=== PATIENT | female | born 1990 | race Caucasian/White ===

== ENCOUNTER 2017-05-29 18:50 | Emergency (ER) | payer SELFPAY ==
[2017-05-29] MEDS ORDERED: IBUPROFEN 800 MG TABLET PO ONE (19:50)
[2017-05-29] MEDS ORDERED: LORATADINE 10 MG TABLET PO ONE (19:50)
[2017-05-29] MEDS ORDERED: PSEUDOEPHEDRINE HCL 30 MG TABLET PO ONE (19:50)
[2017-05-29] MEDS ORDERED: GUAIFENESIN 600 MG TABLET.SA PO ONE (19:50)
--- NOTE | 2017-05-29 19:53 | ER Document Report ---
ED ENT - General Chief Complaint: Congestion Stated Complaint: COUGH Time Seen by Provider: 05/29/17 19:26 Mode of Arrival: Ambulatory Information source: Patient Notes: 27-year-old female presents to ED for cough cold congestion runny nose since yesterday. TRAVEL OUTSIDE OF THE [place] IN LAST 30 DAYS: No - HPI Patient complains to provider of: Nose problem, Throat problem Onset: Yesterday Onset/Duration: Gradual, Worse Quality of pain: Achy Severity: Moderate Pain Level: 4 Location of pain: Other - Body aches Associated symptoms: Chills, Congestion, Cough, Runny nose, Sinus pain. denies : Fever Similar symptoms previously: Yes Recently seen / treated by doctor: No - Related Data Allergies/Adverse Reactions: No Known Allergies Allergy (Verified 05/29/17 18:50) Past Medical History - General Information source: Patient - Social History Smoking Status: Current Every Day Smoker Cigarette use (# per day): Yes - 14-15 cigarettes a day Chew tobacco use (# tins/day): No Smoking Education Provided: Yes - 3 minutes Frequency of alcohol use: None Drug Abuse: None Occupation: None Lives with: Family - Sister Family History: Arthritis, CAD, CVA, DM, Hyperlipidemia, Hypertension. denies: COPD, Malignancy, Thyroid Disfunction Patient has suicidal ideation: No Patient has homicidal ideation: No - Past Medical History Cardiac Medical History: Reports: None Pulmonary Medical History: Reports: Hx Bronchitis EENT Medical History: Reports: None Neurological Medical History: Reports: None Endocrine Medical History: Reports: None Renal/ Medical History: Reports: None Malignancy Medical History: Reports: None GI Medical History: Reports: None Musculoskeltal Medical History: Reports Hx Musculoskeletal Trauma Skin Medical History: Reports Hx Psoriasis Psychiatric Medical History: Reports: Hx Depression Traumatic Medical History: Reports: Hx Fractures - Both arms and ankle Infectious Medical History: Reports: None Past Surgical History: Reports: Hx Cholecystectomy - Immunizations Hx Diphtheria, Pertussis, Tetanus Vaccination: Yes Review of Systems - Review of Systems Constitutional: No symptoms reported EENT: Nose discharge, Sinus discharge Cardiovascular: No symptoms reported Respiratory: Cough Gastrointestinal: No symptoms reported Genitourinary: No symptoms reported Female Genitourinary: No symptoms reported Musculoskeletal: Muscle pain - Body aches Skin: No symptoms reported Hematologic/Lymphatic: No symptoms reported Neurological/Psychological: No symptoms reported -: Yes All other systems reviewed and negative Physical Exam - Vital signs Vitals: Temp Pulse Resp BP Pulse Ox 98.7 F 90 20 126/71 H 96 05/29/17 18:54 05/29/17 18:54 05/29/17 18:54 05/29/17 18:54 05/29/17 18:54 Interpretation: Normal - General General appearance: Appears well, Alert - HEENT Head: Normocephalic, Atraumatic Eyes: Normal Pupils: PERRL Ears: Normal External canal: Normal Tympanic membrane: Normal Sinus: Normal Nasal: Purulent discharge, Swelling Mouth/Lips: Normal Mucous membranes: Normal Pharynx: Post nasal drainage Neck: Normal - Respiratory Respiratory status: No respiratory distress Chest status: Nontender Breath sounds: Nonproductive cough. No: Productive cough, Rales, Rhonchi, Stridor, Wheezing Chest palpation: Normal - Cardiovascular Rhythm: Regular Heart sounds: Normal auscultation Murmur: No - Abdominal Inspection: Normal Distension: No distension Bowel sounds: Normal Tenderness: Nontender Organomegaly: No organomegaly - Back Back: Normal, Nontender - Extremities General upper extremity: Normal inspection, Nontender, Normal color, Normal ROM , Normal temperature General lower extremity: Normal inspection, Nontender, Normal color, Normal ROM , Normal temperature, Normal weight bearing. No: Onelia's sign - Neurological Neuro grossly intact: Yes Cognition: Normal Orientation: AAOx4 [place] Coma Scale Eye Opening: Spontaneous [place] Coma Scale Verbal: Oriented [place] Coma Scale Motor: Obeys Commands April Coma Scale Total: 15 Speech: Normal Motor strength normal: LUE, RUE, LLE, RLE Sensory: Normal - Psychological Associated symptoms: Normal affect, Normal mood - Skin Skin Temperature: Warm Skin Moisture: Dry Skin Color: Normal Course - Re-evaluation Re-evalutation: 05/29/17 19:57 Assessment consistent with an upper respiratory infection. Patient was treated with Claritin and Sudafed Mucinex and ibuprofen. Patient was instructed to take [id number] medicines for her cough and cold symptoms. Patient to follow-up with primary doctor. Patient was instructed to follow-up with for her slightly elevated blood pressure. Patient was also given instructions concerning stopping smoking that it also increases her cough and cold symptoms. - Vital Signs Vital signs: Temp Pulse Resp BP Pulse Ox 97.5 F 94 20 130/76 H 95 05/29/17 19:57 05/29/17 19:57 05/29/17 18:54 05/29/17 19:57 05/29/17 19:57 Discharge - Discharge Clinical Impression: URI (upper respiratory infection) Qualifiers: URI type: unspecified URI Qualified Code(s): J06.9 - Acute upper respiratory infection, unspecified HTN (hypertension) Qualifiers: Hypertension type: unspecified Qualified Code(s): I10 - Essential (primary) hypertension Condition: Stable Disposition: HOME, SELF-CARE Instructions: Family Physicians / Practices Additional Instructions: UPPER RESPIRATORY ILLNESS: You have a viral infection of the respiratory passages -- a "cold." This common infection causes nasal congestion, drainage, and often sore throat and cough. It is highly contagious. The disease usually lasts about 10 to 14 days. There is no "cure" for the viral infection -- it must run its course. If there is a complication, such as bacterial infection in the nose, sinuses, middle ear, or bronchial tubes, antibiotics may be required. The antibiotics won't affect the virus. Drink plenty of fluids. A humidifier may help. An expectorant medication or decongestant may make you more comfortable. Use acetaminophen or ibuprofen for fever or aches. See the doctor if fever persists over two days, if there is any significant worsening of your symptoms, or if you simply fail to improve as expected. DECONGESTANT MEDICATION: A decongestant medicine has been prescribed. Often this medicine is combined in the same tablet with an antihistamine or expectorant. This type of medicine is helpful in treating a bad cold or sinus condition, as well as in treatment of the nasal congestion of hay fever. It is not of much benefit for lung infections. Decongestant medicines are related to stimulants. They can cause an increase in blood pressure and heart rate. Persons with heart disease and high blood pressure should not take decongestants without discussing this with the physician. If you develop palpitations, chest pain, headache, or tremors, stop the medicine and consult your physician. COUGH-SUPPRESSANT & EXPECTORANT MEDICATION: You are to use a cough medication as needed for relief of symptoms. This medicine is a combination of an expectorant (to make the mucous thinner and more easily "coughed up") and a cough suppressant (to reduce the frequency of coughing). The cough-suppressant medicine is related to narcotics. You may experience mild nausea and sleepiness. Some patients who are very sensitive to narcotics may have stomach pain from this medicine. Taking the medicine with food reduces these side effects. Do not drive or work with machinery until you know how this medicine affects you. The expectorant should have no side effects. Iodine-containing expectorants (such as organidin) should not be taken by persons with active thyroid disease unless approved by your doctor. Call the doctor if you develop shortness of breath, hives, rash, itching, lightheadedness, or severe nausea and vomiting. USE OF ACETAMINOPHEN (Tylenol): Acetaminophen may be taken for pain relief or fever control. It's much safer than aspirin, offering a wider range of "safe" dosages. It is safe during . Some brand names are Tylenol, Panadol, Datril, Anacin 3, Tempra, and Liquiprin. Acetaminophen can be repeated every four hours. The following are maximum recommended dosages: >89 pounds or adults 650 mg to 900 mg Acetaminophen can be repeated every four hours. Maximum dose not to exceed 4000 mg a day. SMOKING: If you smoke, you should stop smoking. The tar and chemicals in cigarette smoke are harmful. Smoking has been shown to cause: emphysema chronic bronchitis lung cancer mouth and throat cancer stomach and pancreas cancer premature aging defects In addition, smoking increases ear and lung infections in children of smokers. FOLLOW-UP CARE: If you have been referred to a physician for follow-up care, call the physician s office for an appointment as you were instructed or within the next two days. If you experience worsening or a significant change in your symptoms, notify the physician immediately or return to the Emergency Department at any time for re-evaluation. Forms: Elevated Blood Pressure, Smoking Cessation Education
[2017-05-29 19:57] VITALS: BP 130/76
== END 2017-05-29 20:08 | disposition home or self-care (01) ==
LOC: ER 18:50
DX: J06.9 Acute upper respiratory infection, unspecified (principal); I10 Essential (primary) hypertension; R05 Cough; R09.89 Other specified symptoms and signs involving the circulatory and respiratory systems; R68.83 Chills (without fever); J34.89 Other specified disorders of nose and nasal sinuses; M79.1 Myalgia; F17.210 Nicotine dependence, cigarettes, uncomplicated; Z71.6 Tobacco abuse counseling
CPT/HCPCS: 99283

== ENCOUNTER 2017-11-25 08:27 | Emergency (ER) | payer SELFPAY ==
[2017-11-25 08:42] VITALS: BP 124/81
--- NOTE | 2017-11-25 09:39 | RADIOLOGY REPORT (SQ) ---
EXAM DESCRIPTION: FOREARM RIGHT COMPLETED DATE/TIME: 11/25/2017 9:26 am REASON FOR STUDY: pain to forearm, hit on car door COMPARISON: None. NUMBER OF VIEWS: Two views. TECHNIQUE: Two radiographic images acquired of the right forearm, including elbow and wrist in at le ast one projection. LIMITATIONS: None. FINDINGS: MINERALIZATION: Normal. BONES: No acute fracture. No worrisome bone lesions. SOFT TISSUES: No metallic foreign bodies. OTHER: No other significant finding. IMPRESSION: No fracture identified of the right radius or ulna. TECHNICAL DOCUMENTATION: JOB ID: [id number] [employer]- All Rights Reserved Reading location - IP/workstation name: [email or web address]
--- NOTE | 2017-11-25 09:48 | ER Document Report ---
HPI - HPI Pain Level: 4 Context: Patient is a 27-year-old healthy female who complains of pain to her right ulnar forearm 1 day. Patient reports that she hit it on her truck door and it hurts when she moves her wrist laterally. No previous injury. No deformity. Associated Symptoms: None Exacerbated by: Movement Relieved by: Denies Similar symptoms previously: No Recently seen / treated by doctor: No - ROS Systems Reviewed and Negative: Yes All other systems reviewed and negative - MUSCULOSKELETAL Musculoskeletal: REPORTS: Extremity pain Past Medical History - General Information source: Patient - Social History Smoking Status: Current Every Day Smoker Chew tobacco use (# tins/day): No Frequency of alcohol use: Social Drug Abuse: None Lives with: Family Family History: Arthritis, CAD, CVA, DM, Hyperlipidemia, Hypertension. denies: COPD, Malignancy, Thyroid Disfunction Patient has suicidal ideation: No Patient has homicidal ideation: No Pulmonary Medical History: Reports: Hx Bronchitis Renal/ Medical History: Denies: Hx Peritoneal Dialysis Musculoskeltal Medical History: Reports Hx Musculoskeletal Trauma Skin Medical History: Reports Hx Psoriasis Psychiatric Medical History: Reports: Hx Depression Traumatic Medical History: Reports: Hx Fractures - Both arms and ankle Past Surgical History: Reports: Hx Cholecystectomy - Immunizations Hx Diphtheria, Pertussis, Tetanus Vaccination: Yes Vertical Provider Document - CONSTITUTIONAL Agree With Documented VS: Yes Exam Limitations: No Limitations - INFECTION CONTROL TRAVEL OUTSIDE OF THE [place] IN LAST 30 DAYS: No - HEENT HEENT: Atraumatic, PERRLA - NECK Neck: Normal Inspection, Supple - RESPIRATORY Respiratory: Breath Sounds Normal, No Respiratory Distress - CARDIOVASCULAR Cardiovascular: Regular Rate, Regular Rhythm - MUSCULOSKELETAL/EXTREMETIES Musculoskeletal/Extremeties: Tender - Focal lateral mid ulnar tenderness with small hematoma noted. Wrist with full range of motion no tenderness over radial or ulnar styloid. Elbow with full range of motion, nontender Course - Re-evaluation Re-evalutation: 11/25/17 09:45 X-rays negative for fracture. These results were discussed with patient. Brett wrap applied to forearm. Home care, primary care follow-up and ED return precautions discussed with patient. Patient agreeable with plan and stable for discharge - Vital Signs Vital signs: Temp Pulse Resp BP Pulse Ox 97.8 F 70 20 124/81 97 11/25/17 08:39 11/25/17 08:39 11/25/17 08:39 11/25/17 08:39 11/25/17 08:39 Procedures - Immobilization Right forearm Pre-Proc Neuro Vasc Exam: Normal Immobilizer type: Brett wrap Performed by: PCT Post-Proc Neuro Vasc Exam: Normal Alignment checked and good: Yes Discharge - Discharge Clinical Impression: Contusion of right forearm Qualifiers: Encounter type: initial encounter Qualified Code(s): S50.11XA - Contusion of right forearm, initial encounter Condition: Stable Disposition: HOME, SELF-CARE Instructions: Brett Wrap ([facility]), Contusion ([facility]), Ibuprofen (General) ([facility]), Ice & Elevation ([facility]) Additional Instructions: Brett, ice, elevate injury as much as possible Ibuprofen for discomfort Follow-up with your primary care if pain persists more than 10 days Prescriptions: Ibuprofen [Motrin 800 Mg Tablet] 800 mg PO Q6H #20 tablet
== END 2017-11-25 09:57 | disposition home or self-care (01) ==
LOC: ER 08:27
DX: S50.11XA Contusion of right forearm, initial encounter (principal); M79.631 Pain in right forearm; W22.8XXA Striking against or struck by other objects, initial encounter; Y93.89 Activity, other specified; F17.200 Nicotine dependence, unspecified, uncomplicated; Z87.81 Personal history of (healed) traumatic fracture
CPT/HCPCS: 99283

== ENCOUNTER 2018-03-25 18:09 | Emergency (ER) | payer SELFPAY ==
[2018-03-25] MEDS ORDERED: HYDROCODONE/ACETAMINOPHEN 5-325 MG TABLET PO ONE (18:59)
[2018-03-25] MEDS ORDERED: GUAIFENESIN/CODEINE PHOS 100-10 MG/ 5 ML UDC PO ONE (18:59)
[2018-03-25] MEDS ORDERED: IPRATROPIUM/ALBUTEROL 0.5-2.5 MG/3 ML AMPUL NEB ONE (18:59)
--- NOTE | 2018-03-25 19:06 | ER Document Report ---
ED General - General Chief Complaint: Diarrhea Stated Complaint: DIFFICULTY BREATHING Time Seen by Provider: 03/25/18 18:59 Mode of Arrival: Ambulatory Information source: Patient Notes: History of Present Illness Chief Complaint: [cough] Cough quality= [dry], [without] sputum [No] hemoptysis [ ] History obtained from [patient] 27 years old female presents today with sore throat cough and difficulty in breathing for last 3 days. Denied any fever chills or other constitutional symptoms. Cough is persistent and episodic. She was seen at [facility] yesterday, prescribed amoxicillin. Symptoms began: [past few days] Onset: [gradual] Timing: [constant, lasts hours, persists] Intensity: [moderate] Location: [respiratory tract] Radiation: [none] Migration: [none] Aggravating factors: [none] Relieving factors: [none] Review of Systems : All other systems negative as reviewed. CONSTITUTIONAL No Fever. EYES No eye pain. ENT No sore throat CARDIOVASCULAR No chest pain. RESPIRATORY No SOB, No wheezing, No orthopnea, No pedal edema. GI No abdominal pain, no vomiting, no diarrhea. GENITOURINARY No dysuria. SKIN No rash. NEUROLOGIC No headache. MUSCULOSKELETAL No back pain, No calf pain, No calf swelling Physical Exam CONSTITUTIONAL Vital signs reviewed, Patient has normal respiratory rate, Well appearing, Patient appears comfortable, normal stature. HEAD Atraumatic, Normocephalic. EYES Eyes are normal to inspection. ENT Ears normal to inspection, Nose examination normal. NECK No jugular venous distention. RESPIRATORY CHEST Breath sounds bilaterally decreased breath sounds with scattered wheezing, No respiratory distress. CARDIOVASCULAR RRR, No murmurs, Normal S1 S2, No rub, No gallop. ABDOMEN Abdomen is nontender, No masses, Bowel sounds normal, No distension, No peritoneal signs. BACK Normal inspection. UPPER EXTREMITY Inspection normal. LOWER EXTREMITY Inspection normal. NEURO No facial droop, normal speech. SKIN Skin is warm, Skin is dry, Skin is normal color. PSYCHIATRIC Normal affect. TRAVEL OUTSIDE OF THE [place] IN LAST 30 DAYS: No - HPI Notes: Dictated - Related Data Allergies/Adverse Reactions: No Known Allergies Allergy (Verified 03/25/18 18:12) Past Medical History - Social History Smoking Status: Former Smoker Chew tobacco use (# tins/day): No Smoking Education Provided: No Frequency of alcohol use: None Lives with: Family Family History: Arthritis, CAD, CVA, DM, Hyperlipidemia, Hypertension. denies: COPD, Malignancy, Thyroid Disfunction Patient has suicidal ideation: No Patient has homicidal ideation: No Pulmonary Medical History: Reports: Hx Bronchitis Renal/ Medical History: Denies: Hx Peritoneal Dialysis Musculoskeletal Medical History: Reports Hx Musculoskeletal Trauma Skin Medical History: Reports Hx Psoriasis Psychiatric Medical History: Reports: Hx Depression Traumatic Medical History: Reports: Hx Fractures - Both arms and ankle Past Surgical History: Reports: Hx Cholecystectomy - Immunizations Hx Diphtheria, Pertussis, Tetanus Vaccination: Yes Review of Systems - Review of Systems Notes: Dictated Physical Exam - Vital signs Vitals: Temp Pulse Resp BP Pulse Ox 98.5 F 72 18 130/84 H 99 03/25/18 18:25 03/25/18 18:25 03/25/18 18:25 03/25/18 18:25 03/25/18 18:25 - Notes Notes: Dictated Course - Re-evaluation Re-evalutation: 03/25/18 20:06 Given nebulizer treatment and cough medicine - Vital Signs Vital signs: Temp Pulse Resp BP Pulse Ox 98.5 F 72 18 130/84 H 99 03/25/18 18:25 03/25/18 18:25 03/25/18 18:25 03/25/18 18:25 03/25/18 18:25 Discharge - Discharge Clinical Impression: Asthmatic bronchitis with acute exacerbation Qualifiers: Asthma severity: moderate Asthma persistence: persistent Qualified Code(s): J45.41 - Moderate persistent asthma with (acute) exacerbation Condition: Fair Disposition: HOME, SELF-CARE Instructions: Bronchitis With Bronchospasm (Wheezing) ([facility]) Prescriptions: Hydrocodone Bit/Homatropine [Hycodan 5-1.5 mg Tablet] 1 tab PO Q4HP PRN #14 tablet PRN Reason: Albuterol Sulfate [Proair HFA] 1 - 2 puff IH Q4 PRN #1 inhaler PRN Reason: Prednisone [Sterapred Ds] 10 mg PO ASDIR PRN 6 Days #1 tab.ds.pk PRN Reason:
[2018-03-25 20:19] VITALS: BP 129/77
== END 2018-03-25 20:16 | disposition home or self-care (01) ==
LOC: ER 18:09
DX: J45.41 Moderate persistent asthma with (acute) exacerbation (principal); R19.7 Diarrhea, unspecified; Z87.891 Personal history of nicotine dependence; Z90.49 Acquired absence of other specified parts of digestive tract
CPT/HCPCS: 94640; 99284; J7620

== ENCOUNTER 2018-05-17 10:57 | Emergency (ER) | payer SELFPAY ==
[2018-05-17] MEDS ORDERED: IPRATROPIUM/ALBUTEROL 0.5-2.5 MG/3 ML AMPUL NEB ONE (11:50)
[2018-05-17] MEDS ORDERED: PREDNISONE 20 MG TABLET PO ONE (11:50)
--- NOTE | 2018-05-17 13:57 | RADIOLOGY REPORT (SQ) ---
EXAM DESCRIPTION: CHEST 2 VIEWS COMPLETED DATE/TIME: 05/17/2018 1:31 pm REASON FOR STUDY: cough, fever, sob COMPARISON: None. EXAM PARAMETERS: NUMBER OF VIEWS: two views TECHNIQUE: Digital Frontal and Lateral radiographic views of the chest acquired. RADIATION DOSE: NA LIMITATIONS: none FINDINGS: LUNGS AND PLEURA: Mild streaky interstitial pulmonary opacity, suggestive of atypical or v iral infection. No pleural effusion. MEDIASTINUM AND HILAR STRUCTURES: No masses or contour abnormalities. HEART AND VASCULAR STRUCTURES: Heart normal size. No evidence for failure. BONES: No acute findings. HARDWARE: None in the chest. OTHER: No other significant finding. IMPRESSION: Mild streaky interstitial pulmonary opacity, suggestive of atypical or viral infection. There is no focal airspace opacity. TECHNICAL DOCUMENTATION: JOB ID: [id number] [employer]- All Rights Reserved Reading location - IP/workstation name: [email or web address]
[2018-05-17] MEDS ORDERED: ALBUTEROL SULFATE HFA (90 MCG/PUFF) 8 GM MDI (1 MDI/ER DISP) IH ONE (14:24)
[2018-05-17] MEDS ORDERED: IBUPROFEN 600 MG TABLET PO ONE (14:29)
[2018-05-17] MEDS ORDERED: ACETAMINOPHEN 325 MG TABLET PO ONE (14:29)
--- NOTE | 2018-05-17 14:30 | ER Document Report ---
HPI - HPI Time Seen by Provider: 05/17/18 11:37 Pain Level: 4 Notes: Patient is an otherwise healthy 28-year-old female who presents with chief complaint of productive cough with fever over the last 3-4 days. Patient reports history of pneumonia in the past, states she feels this is the same. Denies any nausea, vomiting or diarrhea. Has been taking [id number] cough and cold medicine with no relief. - CONSTITUTIONAL Constitutional: DENIES: Fever, Chills - NEURO Neurology: REPORTS: Headache - CARDIOVASCULAR Cardiovascular: REPORTS: Chest pain - Pt States from cough - RESPIRATORY Respiratory: REPORTS: Coughing Past Medical History - General Information source: Patient - Social History Smoking Status: Current Every Day Smoker Chew tobacco use (# tins/day): No Frequency of alcohol use: None Drug Abuse: None Family History: Arthritis, CAD, CVA, DM, Hyperlipidemia, Hypertension. denies: COPD, Malignancy, Thyroid Disfunction Patient has suicidal ideation: No Patient has homicidal ideation: No Pulmonary Medical History: Reports: Hx Bronchitis Renal/ Medical History: Denies: Hx Peritoneal Dialysis Musculoskeletal Medical History: Reports Hx Musculoskeletal Trauma Skin Medical History: Reports Hx Psoriasis Psychiatric Medical History: Reports: Hx Depression Traumatic Medical History: Reports: Hx Fractures - Both arms and ankle Past Surgical History: Reports: Hx Cholecystectomy - Immunizations Hx Diphtheria, Pertussis, Tetanus Vaccination: Yes Vertical Provider Document - CONSTITUTIONAL Notes: PHYSICAL EXAMINATION: GENERAL: Well-appearing, well-nourished and in no acute distress. HEAD: Atraumatic, normocephalic. EYES: Pupils equal round extraocular movements intact, conjunctiva are normal. ENT: Nares with rhinorrhea, no tonsillar swelling noted, bilateral TMs pink. NECK: Normal range of motion LUNGS: No respiratory distress, moderate expiratory wheezes noted bilaterally. Musculoskeletal: Normal range of motion NEUROLOGICAL: Normal speech, normal gait. PSYCH: Normal mood, normal affect. SKIN: Warm, Dry, normal turgor, no rashes or lesions noted. - INFECTION CONTROL TRAVEL OUTSIDE OF THE [place] IN LAST 30 DAYS: No Course - Re-evaluation Re-evalutation: Patient's lung sounds have improved after several breathing treatments. X-ray shows a mild streaky interstitial pulmonary opacity suggestive of either an atypical or viral infection. Given patient's presentation and history with productive cough in the presence of fever and multiple pneumonias in the past. I will start patient on outpatient antibiotics at this time. Patient will have close follow-up with her primary care. - Vital Signs Vital signs: Temp Pulse Resp BP Pulse Ox 98.9 F 108 H 20 137/90 H 93 05/17/18 11:00 05/17/18 11:00 05/17/18 11:00 05/17/18 11:00 05/17/18 11:00 Discharge - Discharge Clinical Impression: Upper respiratory infection Qualifiers: URI type: unspecified URI Qualified Code(s): J06.9 - Acute upper respiratory infection, unspecified Pneumonia Qualifiers: Pneumonia type: due to unspecified organism Laterality: unspecified laterality Lung location: unspecified part of lung Qualified Code(s): J18.9 - Pneumonia, unspecified organism Condition: Stable Disposition: HOME, SELF-CARE Additional Instructions: Pneumonia Your examination indicates that you have pneumonia. This is an infection of the lung tissue, usually caused by bacteria or a virus. Symptoms include cough, fever, shaking chills, chest pain, shortness of breath, and coughing up bloody sputum. Treatment for bacterial pneumonia includes rest, antibiotics for 10 to 14 days, increasing your clear liquid intake, a cool mist humidifier at your bedside, and fever medication. Often, a repeat chest X-ray is performed in a few weeks--even if you feel better--to ascertain whether the infection has completely resolved and no underlying lung problem is present. You should call the physician if you develop persistent vomiting, high fever that does not respond to fever medication, increasing shortness of breath , confusion, or lethargy. Also, failure to improve within two to three days is an indication for re-examination. Please take all medications as prescribed. Take ibuprofen or acetaminophen for pain or fever. Follow-up with your primary care provider in 2-3 days for a follow-up. Prescriptions: Doxycycline Hyclate 100 mg PO BID #14 capsule Prednisone [Deltasone 20 mg Tablet] 3 tab PO DAILY 4 Days #12 tablet Forms: Return to Work
[2018-05-17 15:00] VITALS: BP 136/72
== END 2018-05-17 15:02 | disposition home or self-care (01) ==
LOC: ER 10:57
DX: J06.9 Acute upper respiratory infection, unspecified (principal); J18.9 Pneumonia, unspecified organism; R51 Headache; R50.9 Fever, unspecified; F17.200 Nicotine dependence, unspecified, uncomplicated; Z90.49 Acquired absence of other specified parts of digestive tract
CPT/HCPCS: 94640; 99285; 71046; J7512; J3490; J7620

== ENCOUNTER 2018-06-17 09:02 | Emergency (ER) | payer SELFPAY ==
[2018-06-17] MEDS ORDERED: IPRATROPIUM/ALBUTEROL 0.5-2.5 MG/3 ML AMPUL NEB ONE (09:25)
[2018-06-17] MEDS ORDERED: PREDNISONE 20 MG TABLET PO ONE (09:25)
[2018-06-17] MEDS ORDERED: ACETAMINOPHEN 325 MG TABLET PO ONE (09:25)
[2018-06-17] MEDS ORDERED: PSEUDOEPHEDRINE HCL 30 MG TABLET PO ONE (09:25)
[2018-06-17 09:26] VITALS: BP 128/55
--- NOTE | 2018-06-17 09:27 | ER Document Report ---
HPI - HPI Patient complains to provider of: Cough, congestion Time Seen by Provider: 06/17/18 09:17 Onset: Yesterday Onset/Duration: Gradual Quality of pain: Achy Pain Level: 5 Context: Patient presents complaining of cough and congestion. Patient denies any fever. Patient does complain of headache Associated Symptoms: Nonproductive cough, Headache, Rhinnorhea. denies: Fever, Shortness of breath Exacerbated by: Denies Relieved by: Denies Similar symptoms previously: No Recently seen / treated by doctor: No - ROS ROS below otherwise negative: Yes Systems Reviewed and Negative: Yes All other systems reviewed and negative - CONSTITUTIONAL Constitutional: DENIES: Fever - EENT EENT: REPORTS: Nasal Drainage-Clear, Congestion - NEURO Neurology: REPORTS: Headache - RESPIRATORY Respiratory: REPORTS: Coughing. DENIES: Trouble Breathing - GASTROINTESTINAL Gastrointestinal: DENIES: Nausea, Patient vomiting - REPRODUCTIVE Reproductive: DENIES: : - MUSCULOSKELETAL Musculoskeletal: DENIES: Back Pain, Neck Pain - DERM Skin Color: Normal Skin Problems: None Past Medical History - General Information source: Patient - Social History Smoking Status: Former Smoker Frequency of alcohol use: None Drug Abuse: None Occupation: [employer] Family History: Arthritis, CAD, CVA, DM, Hyperlipidemia, Hypertension. denies: COPD, Malignancy, Thyroid Disfunction Pulmonary Medical History: Reports: Hx Bronchitis Renal/ Medical History: Denies: Hx Peritoneal Dialysis Musculoskeletal Medical History: Reports Hx Musculoskeletal Trauma Skin Medical History: Reports Hx Psoriasis Psychiatric Medical History: Reports: Hx Depression Traumatic Medical History: Reports: Hx Fractures - Both arms and ankle Past Surgical History: Reports: Hx Cholecystectomy - Immunizations Hx Diphtheria, Pertussis, Tetanus Vaccination: Yes Vertical Provider Document - CONSTITUTIONAL Agree With Documented VS: Yes Exam Limitations: No Limitations General Appearance: WD/WN, No Apparent Distress - INFECTION CONTROL TRAVEL OUTSIDE OF THE [place] IN LAST 30 DAYS: No - HEENT HEENT: Atraumatic, Normocephalic. negative: Pharyngeal Exudate, Pharyngeal Tenderness, Pharyngeal Erythema, Tympanic Membrane Red, Tympanic Membrane Bulging Notes: Clear rhinorrhea - NECK Neck: Normal Inspection, Supple. negative: Lymphadenopathy-Left, Lymphadenopathy-Right - RESPIRATORY Respiratory: No Respiratory Distress, Wheezing - Scattered wheezing bilaterally. negative: Chest Non-Tender - Anterior chest tenderness with cough - CARDIOVASCULAR Cardiovascular: Regular Rate, Regular Rhythm, No Murmur. negative: Tachycardia - BACK Back: Normal Inspection - MUSCULOSKELETAL/EXTREMETIES Musculoskeletal/Extremeties: MASAFIA, FROM - NEURO Level of Consciousness: Awake, Alert, Appropriate Motor/Sensory: No Motor Deficit - DERM Integumentary: Warm, Dry, No Rash Course - Re-evaluation Re-evalutation: 06/17/18 X-ray reviewed, no concern for pneumonia. Patient with increased air movement bilaterally and decreased wheezing after nebulizer treatments. - Vital Signs Vital signs: Temp Pulse Resp BP Pulse Ox 98.1 F 79 22 H 128/55 H 98 06/17/18 09:20 06/17/18 09:20 06/17/18 09:20 06/17/18 09:20 06/17/18 09:20 - Diagnostic Test Radiology reviewed: Reports reviewed Discharge - Discharge Clinical Impression: Wheezing Upper respiratory infection Qualifiers: URI type: unspecified URI Qualified Code(s): J06.9 - Acute upper respiratory infection, unspecified Condition: Stable Disposition: HOME, SELF-CARE Additional Instructions: Return immediately for any new or worsening symptoms Followup with your primary care provider, call tomorrow to make a followup appointment UPPER RESPIRATORY ILLNESS: You have a viral infection of the respiratory passages -- a "cold." This common infection causes nasal congestion, drainage, and often sore throat and cough. It is highly contagious. The disease usually lasts about 10 to 14 days. There is no "cure" for the viral infection -- it must run its course. If there is a complication, such as bacterial infection in the nose, sinuses, middle ear, or bronchial tubes, antibiotics may be required. The antibiotics won't affect the virus. Drink plenty of fluids. A humidifier may help. An expectorant medication or decongestant may make you more comfortable. Use acetaminophen or ibuprofen for fever or aches. See the doctor if fever persists over two days, if there is any significant worsening of your symptoms, or if you simply fail to improve as expected. BRONCHOSPASM: You have tightness in the bronchial tubes, called bronchospasm. This often occurs with bronchial infections. Allergies, inhaled chemicals, and polluted or cold air can also provoke bronchospasm. It's more likely in patients with asthma in the family. Emergency treatment of bronchospasm may include adrenaline shots or bronchodilator aerosol. You may feel lightheaded and have a rapid pulse for an hour or two. Rest and get plenty of fluids. At home, we'll treat you with a bronchodilator inhaler. Antibiotics and corticosteroids may be required for some patients. Until you recover, avoid chemical fumes, dusts, pollens, and exercising in very cold or dry air. If you smoke, stop now!! If you develop a fever, increased wheezing, chest pain, or severe shortness of breath, you should contact the doctor immediately. INHALED BRONCHODILATORS: You have received a treatment of and/or prescription for an inhaled bronchodilator -- a medication which stimulates the airways in the lung to dilate. This improves the flow of air in asthma, bronchitis, and emphysema. These medicines have some similarity to adrenaline, and can cause similar side effects: shakiness, racing heart, and a sense of nervousness. These side effects decrease with time. Contact your doctor if these side effects are severe. Do not over-use the medicine. Too-frequent use of the inhaler may make it ineffective. Call your doctor if the inhaler is not controlling your symptoms at the prescribed doses. STEROID MEDICATION: You have been given an injection of or oral medicine of the cortisone/steroid class. This medication is used to control inflammation or allergy. Michael t is usually only given for a short period of time, until the acute process subsides. There are usually no side effects from short-term use of cortisone-like medications. Some persons feel an increased sense of well-being and are not sleepy at bedtime. Long-term use of cortisone medications is best avoided, unless required for a severe condition. If your condition does not remit, or relapses after the course of corticosteroid medication, you should consult your physician. USE OF ACETAMINOPHEN (Tylenol): Acetaminophen may be taken for pain relief or fever control. It's much safer than aspirin, offering a wider range of "safe" dosages. It is safe during . Some brand names are Tylenol, Panadol, Datril, Anacin 3, Tempra, and Liquiprin. Acetaminophen can be repeated every four hours. The following are maximum recommended dosages: >89 pounds or adults 650 mg to 900 mg Acetaminophen can be repeated every four hours. Maximum dose not to exceed 4000 mg a day. FOLLOW-UP CARE: If you have been referred to a physician for follow-up care, call the physicians office for an appointment as you were instructed or within the next two days. If you experience worsening or a significant change in your symptoms, notify the physician immediately or return to the Emergency Department at any time for re-evaluation. Prescriptions: Albuterol Sulfate [Proair Hfa Inhalation Aerosol 8.5 gm Mdi] 2 puff IH Q4 PRN #1 mdi PRN Reason: Guaifenesin/Pseudoephedrne HCl [Mucinex D ER 1,200-120 mg Tab] 1 each PO Q12 PRN #12 tab.er.12h PRN Reason: Inhaler,Assist Device,Accesory [Optichamber] 1 each MC Q4 PRN #1 each PRN Reason: Prednisone [Deltasone 20 mg Tablet] 3 tab PO DAILY 4 Days tablet Forms: Return to Work Referrals: [facility] [Provider Group] - Follow up as needed
[2018-06-17] MEDS ORDERED: ALBUTEROL SULFATE 0.083% NEB 2.5 MG/3 ML AMPUL NEB ONE (10:05)
--- NOTE | 2018-06-17 10:23 | RADIOLOGY REPORT (SQ) ---
EXAM DESCRIPTION: CHEST 2 VIEWS COMPLETED DATE/TIME: 06/17/2018 10:09 am REASON FOR STUDY: cough COMPARISON: None. EXAM PARAMETERS: NUMBER OF VIEWS: two views TECHNIQUE: Digital Frontal and Lateral radiographic views of the chest acquired. RADIATION DOSE: NA LIMITATIONS: none FINDINGS: LUNGS AND PLEURA: No opacities, masses or pneumothorax. No pleural effusion. MEDIASTINUM AND HILAR STRUCTURES: No masses or contour abnormalities. HEART AND VASCULAR STRUCTURES: Heart normal size. No evidence for failure. BONES: No acute findings. HARDWARE: None in the chest. OTHER: No other significant finding. IMPRESSION: NO ACUTE RADIOGRAPHIC FINDING IN THE CHEST. TECHNICAL DOCUMENTATION: JOB ID: [id number] [employer]- All Rights Reserved Reading location - IP/workstation name: [email or web address]
== END 2018-06-17 10:52 | disposition home or self-care (01) ==
LOC: ER 09:02
DX: J06.9 Acute upper respiratory infection, unspecified (principal); R06.2 Wheezing; R09.89 Other specified symptoms and signs involving the circulatory and respiratory systems; R51 Headache; Z90.49 Acquired absence of other specified parts of digestive tract
CPT/HCPCS: 94640 ×2; 99283; 71046; J7512; J7620

== ENCOUNTER 2018-08-05 02:18 | Emergency (ER) | payer SELFPAY ==
[2018-08-05] MEDS ORDERED: NORMAL SALINE 1000 ML 1,000 ML IV ONE (03:29)
--- NOTE | 2018-08-05 03:30 | ER Document Report ---
ED General - General Chief Complaint: Flu Symptoms Stated Complaint: FLU SYMPTOMS Time Seen by Provider: 08/05/18 03:17 Notes: Patient is a 28-year-old female that comes to the emergency department for chief complaint of feeling weak, she has had a cough and some sinus congestion that developed today as well with mild congestion symptoms for the past 2 days. She states today her whole body hurts and she "feels like she is dying". She states she coughed and then threw up earlier. She denies abdominal pain, chest pain, headache, sore throat. She states she just feels extremely weak and tired. She is asking for laboratory evaluation. She has not had influenza test. She takes no daily medications. Former smoker. TRAVEL OUTSIDE OF THE [place] IN LAST 30 DAYS: No - Related Data Allergies/Adverse Reactions: No Known Allergies Allergy (Verified 06/17/18 09:29) Past Medical History - General Information source: Patient - Social History Smoking Status: Never Smoker Frequency of alcohol use: None Drug Abuse: None Lives with: Family Family History: Arthritis, CAD, CVA, DM, Hyperlipidemia, Hypertension. denies: COPD, Malignancy, Thyroid Disfunction Pulmonary Medical History: Reports: Hx Bronchitis Renal/ Medical History: Denies: Hx Peritoneal Dialysis Musculoskeletal Medical History: Reports Hx Musculoskeletal Trauma Skin Medical History: Reports Hx Psoriasis Psychiatric Medical History: Reports: Hx Depression Traumatic Medical History: Reports: Hx Fractures - Both arms and ankle Past Surgical History: Reports: Hx Cholecystectomy - Immunizations Hx Diphtheria, Pertussis, Tetanus Vaccination: Yes Review of Systems - Review of Systems Constitutional: See HPI EENT: See HPI Cardiovascular: No symptoms reported Respiratory: See HPI Gastrointestinal: See HPI Genitourinary: No symptoms reported Female Genitourinary: No symptoms reported Musculoskeletal: No symptoms reported Skin: No symptoms reported Hematologic/Lymphatic: No symptoms reported Neurological/Psychological: No symptoms reported Physical Exam - Vital signs Vitals: Temp Pulse Resp BP Pulse Ox 98.2 F 79 16 140/88 H 97 08/05/18 02:23 08/05/18 02:23 08/05/18 02:23 08/05/18 02:23 08/05/18 02:23 - Notes Notes: GENERAL: Sluggish, appears like she does not feel well, however she is nontoxic. HEAD: Normocephalic, atraumatic. EYES: Pupils equal, round, and reactive to light. Extraocular movements intact. ENT: Oral mucosa very dry, tongue midline. Oropharynx unremarkable. Airway patent. Nares congested, sinuses nontender, no nasal septal hematoma, TM's intact. NECK: Full range of motion. Supple. Trachea midline. No nuchal rigidity. LUNGS: Clear to auscultation bilaterally, no wheezes, rales, or rhonchi. No respiratory distress. HEART: Regular rate and rhythm. No murmur ABDOMEN: Soft, non-tender. Non-distended. Bowel sounds present in all 4 quadrants. GENITOURINARY: Deferred EXTREMITIES: Moves all 4 extremities spontaneously. No edema, normal radial and dorsalis pedis pulses bilaterally. No cyanosis. BACK: no cervical, thoracic, lumbar midline tenderness. No saddle anesthesia, normal distal neurovascular exam. NEUROLOGICAL: Alert and oriented x3. Normal speech. [cranial nerves II through XII grossly intact]. PSYCH: Somewhat uncooperative, answers questions begrudgingly SKIN: slightly flushed Course - Re-evaluation Re-evalutation: Patient difficult historian, barely engages me, begrudgingly let me perform physical exam. She does have some sinus congestion, occasional cough, unremarkable oropharyngeal exam, soft benign abdomen. Vital signs are unremarkable. Patient appears to have a viral illness and to feel unwell but she is nontoxic in appearance. She is not confused or disoriented although she is slightly uncooperative. Requesting labs. CBC shows mild leukocytosis. Nonspecific given patient's very benign exam. She just started having sinus symptoms, no purulent discharge, no fever, I do not suspect bacterial sinusitis, strep throat, acute abdomen, pneumonia, or meningitis based on her evaluation. Chemistry unremarkable. Influenza negative. I did provide with IV fluids. I offered to perform a urinalysis but this was declined. Offered to medicate her for suspected flu illness, she agrees with this plan. Provided with work-release. Discussed follow-up and return precautions. Patient states understanding and agreement. Stable at time of discharge. - Vital Signs Vital signs: Temp Pulse Resp BP Pulse Ox 98.1 F 71 22 H 123/66 97 08/05/18 04:57 08/05/18 04:57 08/05/18 04:57 08/05/18 04:57 08/05/18 04:57 - Laboratory Result Diagrams: 08/05/18 03:50 08/05/18 03:50 Laboratory results interpreted by me: 08/05/18 03:50 WBC 12.2 H Hct 35.6 L Absolute Neutrophils 8.7 H Discharge - Discharge Clinical Impression: Weakness, Body aches, Cough, Sinus congestion Condition: Stable Disposition: HOME, SELF-CARE Additional Instructions: Your laboratory workup does not show any concerning findings at this time. Your evaluation and symptoms are most suggestive of a viral illness, possibly influenza. Rest, drink plenty fluids, use medications as prescribed for congestion, cough, nausea as needed. You are probably contagious. Follow-up with primary care. Return for any concerning worsening symptoms including spiking fevers, difficulty breathing, vomiting, or any other concerning or worsening symptoms. Prescriptions: Benzonatate [Tessalon Perles 100 mg Capsule] 100 mg PO Q8HP PRN #20 capsule PRN Reason: Fluticasone Propionate [Flonase Nasal [place] 50 Mcg/[place] 16 gm] 2 sprays NASL Q12 #1 inhaler Promethazine HCl [Phenergan 25 mg Tablet] 25 mg PO Q6H PRN #15 tablet PRN Reason: Forms: Return to Work
[2018-08-05 04:03] LABS: ABSOLUTE EOSINOPHILS # (AUTO) 0.5 10^3/uL (0.0-0.6); ABSOLUTE LYMPHOCYTES (AUTO) 2.3 10^3/uL (0.5-4.7); ABSOLUTE MONOCYTES (AUTO) 0.8 10^3/uL (0.1-1.4); ABSOLUTE NEUT (AUTO) 8.7 10^3/uL (1.7-8.2); BASOPHILS % (AUTO) 0.3 % (0-2); EOSINOPHILS % (AUTO) 3.8 % (0-6); HEMATOCRIT 35.6 % (36.0-47.0); HEMOGLOBIN 12.3 g/dL (12.0-15.5); LYMPHOCYTES % (AUTO) 18.7 % (13-45); MEAN CORPUSCULAR HEMOGLOBIN 30.8 pg (27.0-33.4); MEAN CORPUSCULAR HGB CONC 34.7 g/dL (32.0-36.0); MEAN CORPUSCULAR VOLUME 89 fl (80-97); MONOCYTES % (AUTO) 6.3 % (3-13); PLATELET COUNT 308 10^3/uL (150-450); RED CELL DISTRIBUTION WIDTH 13.1 % (11.5-14.0); SEGMENTED NEUTROPHILS % (AUTO) 70.9 % (42-78); TOTAL CELLS COUNTED % (AUTO) 100 %; WHITE BLOOD COUNT 12.2 10^3/uL (4.0-10.5)
[2018-08-05 04:21] LABS: ANION GAP 9 (5-19); BLOOD UREA NITROGEN 9 mg/dL (7-20); CALCIUM 9.2 mg/dL (8.4-10.2); CARBON DIOXIDE 26 mmol/L (22-30); CHLORIDE 107 mmol/L (98-107); GLUCOSE 90 mg/dL (75-110); POTASSIUM 4.3 mmol/L (3.6-5.0); SODIUM 142.3 mmol/L (137-145)
[2018-08-05 04:31] LABS: A TYPE INFLUENZA AG NEGATIVE (NEGATIVE); B INFLUENZA AG NEGATIVE (NEGATIVE)
[2018-08-05 04:58] VITALS: BP 123/66
== END 2018-08-05 04:58 | disposition home or self-care (01) ==
LOC: ER 02:18
DX: R53.1 Weakness (principal); M79.10 Myalgia, unspecified site; R05 Cough; R09.81 Nasal congestion
CPT/HCPCS: 99283; 96360; 36415; 84703; 85025; 80048; 87804; J7030

== ENCOUNTER 2019-02-05 17:18 | Emergency (ER) | payer SELFPAY ==
[2019-02-05 17:27] VITALS: BP 122/76
[2019-02-05] MEDS ORDERED: HYDROCODONE/ACETAMINOPHEN 5-325 MG (6 TAB/ER DISP) PO PRN (17:43)
[2019-02-05] MEDS ORDERED: PENICILLIN V POTASSIUM 500 MG TABLET PO ONE (17:43)
--- NOTE | 2019-02-05 17:45 | ER Document Report ---
HPI - HPI Time Seen by Provider: 02/05/19 17:30 Pain Level: 3 Notes: Patient is otherwise healthy 28-year-old female presenting to the emergency department chief complaint of right lower dental pain. Patient reports she had tooth #29 removed at the [facility] in [place] approximately 1 week ago. She reports pain and swelling at the site. She denies any fevers. - REPRODUCTIVE Reproductive: DENIES: : Past Medical History - General Information source: Patient - Social History Smoking Status: Never Smoker Frequency of alcohol use: None Drug Abuse: None Family History: Arthritis, CAD, CVA, DM, Hyperlipidemia, Hypertension. denies: COPD, Malignancy, Thyroid Disfunction Pulmonary Medical History: Reports: Hx Bronchitis Renal/ Medical History: Denies: Hx Peritoneal Dialysis Musculoskeletal Medical History: Reports Hx Musculoskeletal Trauma Skin Medical History: Reports Hx Psoriasis Psychiatric Medical History: Reports: Hx Depression Traumatic Medical History: Reports: Hx Fractures - Both arms and ankle Past Surgical History: Reports: Hx Cholecystectomy - Immunizations Hx Diphtheria, Pertussis, Tetanus Vaccination: Yes Vertical Provider Document - CONSTITUTIONAL Notes: PHYSICAL EXAMINATION: GENERAL: Well-appearing, well-nourished and in no acute distress. HEAD: Atraumatic, normocephalic. EYES: Pupils equal round extraocular movements intact, conjunctiva are normal. ENT: Nares patent, erythema noted around right lower gumline in between tooth #28 and 31. Poor dentition noted throughout. No drainable abscess identified. NECK: Normal range of motion LUNGS: No respiratory distress Musculoskeletal: Normal range of motion NEUROLOGICAL: Normal speech, normal gait. PSYCH: Normal mood, normal affect. SKIN: Warm, Dry, normal turgor, no rashes or lesions noted. - INFECTION CONTROL TRAVEL OUTSIDE OF THE [place] IN LAST 30 DAYS: No Course - Re-evaluation Re-evalutation: Patient appears well, nontoxic and is in no acute distress. I do not see a drainable abscess in the patient's mouth. I will start patient on antibiotics at this time. Encourage follow-up with dentist. Patient understands ED return precautions. - Vital Signs Vital signs: Temp Pulse Resp BP Pulse Ox 97.9 F 69 16 122/76 98 02/05/19 17:26 02/05/19 17:26 02/05/19 17:26 02/05/19 17:26 02/05/19 17:26 Discharge - Discharge Clinical Impression: Pain, dental Condition: Stable Disposition: HOME, SELF-CARE Additional Instructions: You have been seen for dental pain following a dental extraction. It is very important that you follow-up with a dentist for definitive care. Please return if you develop fever greater than 101, increased swelling in your face, vomiting, difficulty breathing or swallowing, or any other symptoms that are concerning to you. Take the antibiotics as prescribed, complete the entire course even if your symptoms resolve. For pain you should take ibuprofen 800 mg every 8 hours as needed. Use the narcotic pain medication for severe pain only. Prescriptions: Penicillin V Potassium [Penicillin Vk 500 mg Tablet] 500 mg PO BID #20 tablet
== END 2019-02-05 17:52 | disposition home or self-care (01) ==
LOC: ER 17:18
DX: K08.89 Other specified disorders of teeth and supporting structures (principal); R22.0 Localized swelling, mass and lump, head
CPT/HCPCS: 99282